=== PATIENT | female | born 1980 | race Caucasian/White ===

== ENCOUNTER 2020-10-02 19:17 | Outpatient (REF) | payer OTHER, SELFPAY ==
[2020-10-02 19:56] LABS: HCT 36.7 % (36.0-46.0); HGB 11.6 g/dL (11.2-15.7); MCH 25.7 pg (27.0-33.0); MCHC 31.6 % (32.0-36.0); MCV 81.4 fL (80-95); MPV 9.4 fL (8.0-11.0); Platelet Count 481 10^3/uL (130-400); RBC 4.51 10^6/uL (3.93-5.22); RDW 14.2 % (11.7-14.6); RDW-SD 41.6 fL; WBC 8.89 10^3/uL (4.4-10.8)
[2020-10-02 20:40] LABS: ALT 23 U/L (14-59); AST 14 U/L (15-37); Albumin 3.7 g/dL (3.4-5.0); Alkaline Phosphatase 103 U/L (46-116); Anion Gap 11.9 mmol/L (3-11); BUN 8 mg/dL (7-18); Bilirubin, Total 0.2 mg/dL (0.2-1.0); CO2 24.1 mmol/L (21.0-32.0); CREATININE 0.6 mg/dL (0.55-1.02); Calcium 9.4 mg/dL (8.5-10.1); Chloride 100 mmol/L (98-107); Glucose 345 mg/dL (74-106); Potassium 4.2 mmol/L (3.5-5.1); Sodium 136 mmol/L (136-145); TSH (W/Ref FT4) 1.12 uIU/mL (0.36-3.74); Total Protein 7.5 g/dL (6.4-8.2)
[2020-10-02 20:55] LABS: Cholesterol 277 mg/dL (<200); HDL Cholesterol 37 mg/dL (40-60); Triglyceride 405 mg/dL (<150)
[2020-10-02 21:08] LABS: LDL CHOLESTEROL 181 mg/dL (<100)
== END 2020-10-02 19:18 | disposition home or self-care (01) ==
LOC: NCHCN 19:17
PROVIDERS: Visit Provider Nurse Practitioner
DX: N92.6 Irregular menstruation, unspecified (principal); Z13.220 Encounter for screening for lipoid disorders; Z13.29 Encounter for screening for other suspected endocrine disorder
CPT/HCPCS: 80053; 80061; 83721; 85027; 84443

== ENCOUNTER 2020-10-03 16:44 | Outpatient (REF) | payer OTHER, SELFPAY ==
[2020-10-03 19:51] LABS: Hemoglobin A1C 10.9 % (<5.7)
== END 2020-10-03 16:45 | disposition home or self-care (01) ==
LOC: NCHCN 16:44
PROVIDERS: Visit Provider Nurse Practitioner
DX: R73.9 Hyperglycemia, unspecified (principal)
CPT/HCPCS: 83036

== ENCOUNTER 2020-10-25 14:08 | Outpatient (REF) | payer OTHER, SELFPAY ==
[2020-10-27 15:35] LABS: Fructosamine 270 mcmol/L (200 - 285)
== END 2020-10-25 14:09 | disposition home or self-care (01) ==
LOC: NCHCN 14:08
PROVIDERS: Visit Provider Nurse Practitioner
DX: E11.9 Type 2 diabetes mellitus without complications (principal)
CPT/HCPCS: 82985

== ENCOUNTER 2020-10-30 02:59 | Outpatient (CLI) | payer OTHER, SELFPAY ==
[2020-10-30 12:16] LABS: Source Nasal/Nares
[2020-10-30 16:02] LABS: COVID-19 PCR Negative (Negative)
== END 2020-10-30 03:00 | disposition home or self-care (01) ==
PROVIDERS: Visit Provider Obstetrics & Gynecology Gynecology
DX: Z20.822 Contact with and (suspected) exposure to COVID-19 (principal); Z01.818 Encounter for other preprocedural examination
CPT/HCPCS: 87635

== ENCOUNTER 2020-10-30 03:22 | Outpatient (CLI) | payer OTHER, SELFPAY ==
[2020-10-30 08:32] LABS: HCT 35.2 % (36.0-46.0); MCH 25.5 pg (27.0-33.0); MCHC 31.3 % (32.0-36.0); MCV 81.5 fL (80-95); MPV 8.7 fL (8.0-11.0); Platelet Count 430 10^3/uL (130-400); RBC 4.32 10^6/uL (3.93-5.22); RDW 13.7 % (11.7-14.6); RDW-SD 40.7 fL; WBC 9.12 10^3/uL (4.4-10.8)
[2020-10-30 09:12] LABS: Hemoglobin A1C 9.2 % (<5.7)
[2020-10-30 09:42] LABS: Anion Gap 11.8 mmol/L (3-11); BUN 10 mg/dL (7-18); CO2 25.2 mmol/L (21.0-32.0); CREATININE 0.8 mg/dL (0.55-1.02); Calcium 8.7 mg/dL (8.5-10.1); Chloride 105 mmol/L (98-107); Glucose 151 mg/dL (74-106); Potassium 4.3 mmol/L (3.5-5.1); Sodium 142 mmol/L (136-145)
== END 2020-10-30 03:23 | disposition home or self-care (01) ==
LOC: LBO 03:22
PROVIDERS: Visit Provider Obstetrics & Gynecology Gynecology
DX: N93.9 Abnormal uterine and vaginal bleeding, unspecified (principal); E11.9 Type 2 diabetes mellitus without complications; Z01.818 Encounter for other preprocedural examination; Z01.812 Encounter for preprocedural laboratory examination
CPT/HCPCS: 36415; 80048; 85027; 86850; 86900; 86901; 83036

== ENCOUNTER 2020-10-30 16:25 | Outpatient (CLI) | payer OTHER, SELFPAY ==
--- NOTE | 2020-10-30 16:30 | RT.EKG_ITS ---
APPROVED REPORT Exam: Resting ECG Reason for Exam: preop Patient Location: O HR:81 bpm ECG Measurements Heart Rate 81 AXIS WY 163 P 49 QRSd 101 QRS 3 QT 384 T 20 QTc 445 Conclusion Sinus rhythm...normal P axis, V-rate 60- 99
== END 2020-10-30 16:26 | disposition home or self-care (01) ==
PROVIDERS: Visit Provider Student in an Organized Health Care Education/Training Program
DX: Z01.810 Encounter for preprocedural cardiovascular examination (principal)
CPT/HCPCS: 93005; 93010

== ENCOUNTER 2020-11-01 10:36 | Observation (INO) | payer OTHER, SELFPAY ==
[2020-11-01] VITALS (11 sets, daily range): BP systolic 80–120; BP diastolic 37–77; PULSE 67–79; RESP 12–19; TEMP 35.8–36.6; O2SAT 95–98; BMI 28.9
[2020-11-01] MEDS: Lactated Ringers 1,000 ML 125 ML IV ×2 (06:58→11:41)
--- NOTE | 2020-11-01 07:17 | W.ANESPRE ---
General Info Date of Service Date Performed: 11/01/20 Height: 5 ft 7 in Weight: 83.688 kg Body Mass Index (BMI): 28.9 Surgical Procedure: Operation Date: 11/01/20 07:40 Proposed Procedures Side Surgeon p Hysterectomy Vaginal Laparoscopic Assist, bladder cysto Marya Olmedo MD Meds Allergies and Home Medications Allergies Allergy/AdvReac Type Severity Reaction Status Date / Time No Known Allergies Allergy Verified 11/01/20 06:29 Home Medication Medication Instructions Recorded metformin 500 mg tablet 1,000 mg PO BID 10/13/20 rosuvastatin [Crestor] 20 mg PO DAILY 10/30/20 Current Visit Medications: Current Medications Generic Name Dose Route Start Last Admin Trade Name Freq PRN Reason Stop Dose Admin Ringer's Solution 1,000 mls @ 125 mls/hr 11/01/20 06:00 IV 11/30/20 23:59 INFUSION STALIN Cefazolin Sodium/Dextrose 2 gm in 50 mls @ 100 mls/hr 11/01/20 06:00 Ancef Duplex IVPB 11/30/20 23:59 PREOP STALIN IV Miscellaneous Supplies 1 each 11/01/20 06:00 Iv Access IV 11/30/20 23:59 DIRECTED STALIN Sodium Chloride 0 ml 11/01/20 06:00 Normal Saline Flush 10 Ml Syr IV 11/30/20 23:59 PRN PRN Sodium Chloride 0 ml 11/01/20 06:00 Normal Saline 10 Ml Vial IJ 11/30/20 23:59 DIRECTED PRN Sterile Water 0 ml 11/01/20 06:00 Water,Injection,Sterile 10 Ml Vial IJ 11/30/20 23:59 DIRECTED PRN PFSH Active Problems Active Problems: Problem Status Onset Code Diabetes E11.9 Migraine G43.909 Abnormal uterine bleeding (AUB) N93.9 Medical History Medical History Diabetes 10/03/20. HgbA1c 10.4. Rx with Metformin 500mg BID. Surgical History Surgical History Hx of tubal ligation Tobacco Smoking/Tobacco Use Status: Never Alcohol Alcohol Intake: current Alcohol intake frequency: a few times a month Substance Use Substance use: Never Substance use type: does not use Prental History History 3 Para 3 Hx # Term Pregnancies 3 Multiple births Hx # Pregnancies Ectopic pregnancies AB induced Hx Number of Living Children 3 AB spontaneous Vital Signs and Lab Results Vital Signs Most Recent Vital Signs in EMR: Most Recent Vital Signs Temp Pulse Resp BP Pulse Ox 36.6 C 79 18 120/77 98 11/01/20 06:30 11/01/20 06:30 11/01/20 06:30 11/01/20 06:30 11/01/20 06:30 Point of Care Results Point of Care Results: POC- Test(urine) Positive 11/01/20 06:40 Lab Results Blood Type / Crossmatch: Patient ABO/Rh A Positive 10/30/20 08:15 10/30/20 Antibody Screen NEGATIVE 10/30/20 08:15 10/30/20 Complete Blood Count: White Blood Count 9.12 10^3/uL (4.4-10.8) 10/30/20 08:15 10/30/20 Red Blood Count 4.32 10^6/uL (3.93-5.22) 10/30/20 08:15 10/30/20 Hemoglobin 11.0 g/dL (11.2-15.7) L 10/30/20 08:15 10/30/20 Hematocrit 35.2 % (36.0-46.0) L 10/30/20 08:15 10/30/20 Platelet Count 430 10^3/uL (130-400) H 10/30/20 08:15 10/30/20 Complete Metabolic Panel: Sodium Level 142 mmol/L (136-145) 10/30/20 08:15 10/30/20 Potassium Level 4.3 mmol/L (3.5-5.1) 10/30/20 08:15 10/30/20 Chloride Level 105 mmol/L (98-107) 10/30/20 08:15 10/30/20 Carbon Dioxide Level 25.2 mmol/L (21.0-32.0) 10/30/20 08:15 10/30/20 Blood Urea Nitrogen 10 mg/dL (7-18) 10/30/20 08:15 10/30/20 Creatinine 0.8 mg/dL (0.55-1.02) 10/30/20 08:15 10/30/20 Estimated GFR/1.73 m2 >= 60.00 (mL/min/1.73m2) 10/30/20 08:15 10/30/20 Calcium Level 8.7 mg/dL (8.5-10.1) 10/30/20 08:15 10/30/20 Albumin 3.7 g/dL (3.4-5.0) 10/02/20 15:45 10/02/20 Glucose Level 151 mg/dL (74-106) H 10/30/20 08:15 10/30/20 Hemoglobin A1c 9.2 % (<5.7) H 10/30/20 08:15 10/30/20 Liver Function Panel: Alanine Aminotransferase (ALT/SGPT) 23 U/L (14-59) 10/02/20 15:45 10/02/20 Aspartate Amino Transf (AST/SGOT) 14 U/L (15-37) L 10/02/20 15:45 10/02/20 Coagulation Panel: No Data to Display Cardiac Panel: No Data to Display Arterial Blood Gas: No Data to Display Venous Blood Gas: No Data to Display Pancreas Panel: No Data to Display Thyroid Panel: Thyroid Stimulating Hormone (TSH) 1.12 uIU/mL (0.36-3.74) 10/02/20 15:45 10/02/20 Infectious Disease: Coronavirus (COVID-19)(PCR) Negative (Negative) 10/30/20 08:27 10/30/20 Coronavirus 2019 Source Nasal/Nares 10/30/20 08:27 10/30/20 Blood Cultures: No Data to Display Toxicology Panel: No Data to Display Panel: No Data to Display Anesthesia Assessment and Plan Anesthesia History Personal History: No History of Anesthesia Complications Family History: No Family History of Anesthesia Complications Exercise Tolerance Exercise Tolerance: Metabolic Equivalents>4 Pertinent Negatives Pertinent Negatives: No Symptoms of GERD, No Major Cardiovascular Symptoms or Complaints and No Major Pulmonary Symptoms or Complaints Cardiac & Pulmonary Exam Cardiac Exam: Normal S1/S2 Heart Sounds Pulmonary Exam: Clear Bilateral Breath Sounds Airway Exam Known Difficult Airway: No Mallampati Class: 2 Mouth Opening: Normal (> 3cm) Thyromental Distance: Greater than 3 cm Neck Range of Motion: Full ROM Neck Circumference: Normal Teeth Condition: Normal Dentition ASA Classification ASA Score: ASA 2 Emergency Case?: No NPO Status NPO Status: NPO Clears >2 hours, Solids >8 hours Status Status: Negative HCG Anesthesia Plan Resuscitation Status: Full Code Anesthesia Technique: General Anesthesia Airway Planned: Endotracheal Tube Pain Management: Intrathecal Analgesia Monitors Used: Standard Monitors
[2020-11-01] MEDS: ceFAZolin 2 GM/50 ML BAG IVPB (07:58)
--- NOTE | 2020-11-01 09:05 | UTER_PTH ---
PATIENT: Vivian Damon LOC: U#:[id number] AGE/SX: 39/F ROOM: RE11/01/[address]: Marya Olmedo : 1980 BED: A DIS: 11/02/2020 SPEC #: [id number] RECD: 11/01/20 12:38 STATUS: JACE REQ #: [id number] LAWRENCE: 11/01/20 09:[address]: Marya Olmedo DEPT: Surgical Specimen RECD BY: Gogo Zarate ENTERED: 11/01/20 12:40 SP TYPE: UTER OTHR DR: Unknown,Unknown Tissues: 1 - UTERUS W OR W/O OVARIES(NOT TUMOR/PROLAPSE) Procedures: GROSS AND MICRO LEVEL 5 Comments: [id number]
[2020-11-01] MEDS: Cellulose,Oxidized 4X8 1 PACKET MC (10:26)
[2020-11-01] MEDS: Bupivacaine 0.25% Pres-Free 30 ML VIAL (10:27)
--- NOTE | 2020-11-01 11:25 | W.ANESPOSTOP ---
Postoperative Evaluation Date, Time and Location Date Performed: 11/01/20 Time Performed: 11:25 Patient Location: PACU Vital Signs Most Recent Imported Vital Signs: Most Recent Vital Signs Temp Pulse Resp BP Pulse Ox 36.3 C L 77 19 117/63 95 11/01/20 11:20 11/01/20 11:20 11/01/20 11:20 11/01/20 11:20 11/01/20 11:20 Pain Score Most Recent Pain Score: Most Recent Pain Score Pain Level 0 11/01/20 11:20 Assessment Mental Status: Awake (Alert & Oriented to Patient Baseline) Airway and Respiratory Function: Patent airway with normal (patient baseline) respiratory exam Cardiovascular Function: Hemodynamically Stable Hydration Status: Adequately Hydrated Nausea & Vomiting: No Nausea or Vomiting Pain: Pt. Denies Any Pain Peripheral Nerve Block: Patient did not receive a nerve block
[2020-11-01] MEDS: Naloxone 0.4 MG/ML VIAL IVP (13:05)
[2020-11-01] MEDS: Ketorolac 30 MG/ML VIAL IVP ×2 (15:58→21:27)
[2020-11-01] MEDS: Insulin NPH-Human 300 UNITS/3 ML PEN 4 UNIT SC (17:58)
[2020-11-01] MEDS: Rosuvastatin 10 MG TAB 20 MG PO (19:49)
[2020-11-01] MEDS: Docusate Sodium 100 MG CAP PO (19:50)
[2020-11-01] MEDS: metFORMIN 500 MG TAB 1000 MG PO (19:50)
[2020-11-01] MEDS: Normal Saline Flush 10 ML SYR IV (21:28)
[2020-11-02] MEDS: Lactated Ringers 1,000 ML 125 ML IV (02:13)
[2020-11-02] MEDS: Ketorolac 30 MG/ML VIAL IVP ×2 (04:05→09:50)
[2020-11-02 07:00] LABS: HCT 29.4 % (36.0-46.0); HGB 9.1 g/dL (11.2-15.7); MCH 25.6 pg (27.0-33.0); MCV 82.8 fL (80-95); MPV 9.2 fL (8.0-11.0); Platelet Count 332 10^3/uL (130-400); RBC 3.55 10^6/uL (3.93-5.22); RDW 13.7 % (11.7-14.6); RDW-SD 41.3 fL; WBC 12.84 10^3/uL (4.4-10.8)
[2020-11-02 07:11] VITALS: BP 126/81; PULSE 64; RESP 17; TEMP 36.2; O2SAT 98
[2020-11-02 07:20] LABS: ALT 19 U/L (14-59); AST 8 U/L (15-37); Albumin 2.6 g/dL (3.4-5.0); Alkaline Phosphatase 55 U/L (46-116); Anion Gap 6.1 mmol/L (3-11); BUN 13 mg/dL (7-18); Bilirubin, Total 0.3 mg/dL (0.2-1.0); CO2 24.9 mmol/L (21.0-32.0); CREATININE 0.8 mg/dL (0.55-1.02); Calcium 8.7 mg/dL (8.5-10.1); Chloride 106 mmol/L (98-107); Glucose 148 mg/dL (74-106); Potassium 3.8 mmol/L (3.5-5.1); Sodium 137 mmol/L (136-145); Total Protein 5.7 g/dL (6.4-8.2)
[2020-11-02] MEDS: Insulin NPH-Human 300 UNITS/3 ML PEN 4 UNIT SC (07:58)
[2020-11-02] MEDS: metFORMIN 500 MG TAB 1000 MG PO (07:58)
[2020-11-02] MEDS: Docusate Sodium 100 MG CAP PO (07:58)
--- NOTE | 2020-11-02 09:21 | W.PM.DS.N ---
Date of service: 11/02/20 Time of Service: 09:24 DS: Diagnosis Discharge Diagnosis (1) Diabetes: Status: Chronic Asessment and Plan: New onset fcp-dbwbwkx-zlfutztrz diabetes. Initial hemoglobin A1c 10.9. Repeat after 1mo of Metformin and lifestyle changes: 9.2. Preop Fructosamine 270 (200-285). Pt will be discharged to home with Novolin-N 4units BID (2) Abnormal uterine bleeding (AUB): Status: Acute (3) History of laparoscopic-assisted vaginal hysterectomy: Status: Acute (4) History of bilateral salpingectomy: Status: Acute Discharge Plan Disposition Patient Disposition: HOME Condition: Fair Discharge Details Reason For Visit: LAPAROSCOPIC ASSISTED VAGINAL HYSTERECTOMY Admit Date/Time: 11/01/20 10:36 Admit Provider: Marya Olmedo Attending Provider: Marya Olmedo Primary Care Provider: Unknown,Unknown Hospital Course Hospital Course: Patient was admitted the morning of surgery underwent the above-stated procedure. Her postop course was uncomplicated she was discharged home on postop day #1 tolerating a regular diet and voiding spontaneously. Her pain was controlled with nonsteroidal anti-inflammatories. She declined narcotics for post op pain management. She received 4 units of NPH at bedtime day of surgery and her blood glucose in the morning was 149 mg/dL. The plan is to have her continue 4 units of NPH dosing twice daily and check in with me frequently regarding glycemic control. She will be followed up in the office in approximately 1 week for inspection of incisions. Pathology results pending at the time of discharge Home Meds and New Rx's Prescriptions: New Humulin N NPH Insulin KwikPen 100 unit/mL (3 mL) Insulin Pen 4 unit subcut BID@0800,1700 Qty: 3 RF: 0 No Action metformin 500 mg tablet 1,000 mg PO BID RF: 0 rosuvastatin [Crestor] 20 mg Tablet 20 mg PO DAILY RF: 0 Discharge Instructions Instructions: Hysterectomy (DC), Laparoscopic Hysterectomy (DC) Additional Instructions: Call or text Dr. Olmedo at on 11/04/2020 with your morning sugar result. Continuing to test your sugars as you did before your surgery. Use the Nov Do not lift anything heavier than 10 pounds. No driving for 2 weeks. Use ibuprofen for pain control. Plan 600 mg of the uajw-xlp-uaghlet ibuprofen/Advil every 6 hours as needed. You may have black and blue around your incisions. You have skin glue in place that can be removed at the time of your next office visit. Stand Alone Forms: [facility] Post Gynecology Surgery, Nursing Discharge Form Referrals: Marya Olmedo MD [ [facility] STAFF PHYSICIAN] - 11/13/20 8:00 am Activity:: Activity as Tolerated Equipment/Supplies:: No Equipment Needed Diet:: Carb Counting Discharge Orders Discharge Orders: Discharge Order (Routine); Ordered 11/02/20 Ordered By: Marya Olmedo DS: Summary Time Spent with Patient providing and/or coordinating discharge services: Less than 30 minutes Status at Discharge Functional status at discharge: independent ambulation Overall status at discharge: patient is progressing back to baseline Mental Status: mental status grossly normal Speech and Movement: speech and movement normal Mood: congruent mood Affect: normal affect Exam Const General: no acute distress Nutritional Appearance: overweight Orientation: alert, awake and oriented x3 Neck Neck: normal visual inspection Resp Effort & Inspection: normal respiratory effort Auscultation: clear to auscultation bilaterally Cardio Rate: regular rate Rhythm: regular rhythm GI Inspection: incision (Clean dry intact. Skin glue in place. No ecchymosis) Palpation: soft, no hepatosplenomegaly and tender (Diffuse throughout the abdomen) General: deferred Skin General skin exam: no rashes or lesions noted Extrem General: normal to inspection and full ROM Psych Appearance: grossly normal Mental Status: mental status grossly normal Speech and Movement: speech and movement normal Mood: congruent mood Affect: normal affect DS: Data Vitals/I&O Vitals and I&O: Vital Signs Temperature 97.2 F L 11/02/20 07:11 Temperature Source Temporal Artery Scan 11/02/20 07:11 Pulse 64 11/02/20 07:11 Pulse Rhythm Regular 11/02/20 06:02 Respiratory Rate 17 11/02/20 07:11 Respiratory Effort Non-Labored 11/02/20 06:02 Respiratory Depth Normal 11/02/20 06:02 Respiratory Pattern Normal 11/02/20 06:02 Blood Pressure 126/81 11/02/20 07:11 Pulse Oximetry 98 11/02/20 07:11 Respiratory End-tidal CO2 11/01/20 11:05 Oxygen Delivery Method Room Air 11/02/20 07:11 Oxygen Flow Rate 0 11/02/20 07:11 Pain Level 3 11/02/20 07:56 Intake & Output 11/01/20 11/01/20 11/02/20 11:59 23:59 11:59 Intake Total 845.833 / 1045.833 200 / 1045.833 550 / 550 Output Total 1395 / 1395 1650 / 1650 Balance 845.833 / -349.167 -1195 / -349.167 -1100 / -1100 Weight 184 lb 8.007 oz 183 lb 10.321 oz Intake: IV 845.833 / 845.833 Oral 200 / 200 550 / 550 Output: Urine 1395 / 1395 1650 / 1650 Other: Urine Color Green Green Indigo Urine Appearance Clear Clear Urine Odor None Comment blue colored output from vale. Emesis Description None Voiding Methods Indwelling Catheter Data Completed and Pending Labs on day of discharge: Labs from last 24 hours 11/02/20 11/02/20 06:05 06:05 WBC 12.84 H RBC 3.55 L Hgb 9.1 L Hct 29.4 L MCV 82.8 MCH 25.6 L MCHC 31.0 L RDW 13.7 Plt Count 332 MPV 9.2 Sodium 137 Potassium 3.8 Chloride 106 Carbon Dioxide 24.9 Anion Gap 6.1 BUN 13 Creatinine 0.8 Estimated GFR/1.73 m2 >= 60.00 Glucose 148 H Calcium 8.7 Total Bilirubin 0.3 AST 8 L ALT 19 Alkaline Phosphatase 55 Total Protein 5.7 L Albumin 2.6 L [facility] Medical History (Updated 11/02/20 @ 09:34 by Marya Olmedo MD) Diabetes 10/03/20. New onset yjg-rbmcxkr-jyefrjwhd diabetes. Initial hemoglobin A1c 10.9. Repeat after 1mo of Metformin and lifestyle changes: 9.2. Preop Fructosamine 270 (200-285). Pt will be discharged to home with Novolin-N 4units BID Surgical History (Updated 11/02/20 @ 09:25 by Marya Olmedo MD) History of bilateral salpingectomy History of laparoscopic-assisted vaginal hysterectomy Hx of tubal ligation Family History Other Cancer Diabetes Hypertension Social History (Updated 07/19/20 @ 20:11 by Marya Olmedo MD) Smoking/Tobacco Use Status: Never Smoking risk assessment performed?: Yes Alcohol Intake: current Alcohol Intake frequency: a few times a month Drug use: Never Substance use type: does not use Household members: spouse, children and other Details: Nate x 4.5yrs. Do you feel safe at home: Yes Do you feel safe in your relationship?: Yes Female Reproductive History Menstrual Duration of menses: 3-5 days (Heavy) control method: permanent sterilization History History 3 Para 3 Hx # Term Pregnancies 3 Multiple births Hx # Pregnancies Ectopic pregnancies AB induced Hx Number of Living Children 3 AB spontaneous
[2020-11-02] MEDS: Normal Saline Flush 10 ML SYR IV (09:50)
--- NOTE | 2020-11-02 09:55 | ROE_ITS ---
Date of service: 11/02/20 Time of Service: 09:56 Operative Note Operative Note DATE OF PROCEDURE: 11/01/20 PRE-OP DIAGNOSIS: Abnormal uterine bleeding POST-OP DIAGNOSIS: same PROCEDURE: Laparoscopic-assisted vaginal hysterectomy bilateral salpingectomy and bladder cystoscopy SURGEON: Marya Olmedo TELEVISION AND RADIO REPAIRER: Kait Lopez ANESTHESIA TYPE: General LMA/ETT and Spinal Refer to Anesthesia Record ESTIMATED BLOOD LOSS: 100 PATHOLOGY: other (Uterus cervix and bilateral fallopian tubes) COMPLICATIONS: None Patient was transported to: PACU Patient's condition: stable Indications: 39-year-old female with a history of abnormal uterine bleeding previously treated with a endometrial ablation that did not impact her heavy regular menses. She requested definitive therapy in the form of hysterectomy. Findings: Uterus somewhat bulky. Previous bilateral fallopian tube ligation noted. Otherwise normal fallopian tubes normal adnexa. 1 focus of peritoneal adhesion from the left fallopian tube to the right pelvic sidewall. It was easily treated with a single cauterization and transection by LigaSure device. Procedure Description: Patient was taken to the operating room where she was placed in the sitting position and spinal anesthesia was administered. She received 2 g of Ancef prior to skin incision. She was then placed in the dorsal supine position and general endotracheal anesthesia was administered without difficulty. She was then placed in the dorsal lithotomy position in yellowfin stirrups with SCDs in place. After being prepped and draped in the usual sterile fashion a surgical timeout was performed. Madrid catheter was placed to gravity drainage. A bivalve speculum was placed in the vagina the anterior lip of the cervix was grasped with a single-tooth tenaculum. A Huma uterine manipulator was successfully inserted into the uterine cavity, the catheter bulb inflated with 3 cc of normal saline and the device left in place. Attention was then turned to the patient's abdomen. The umbilical fold was infiltrated with quarter percent Marcaine without epinephrine. A scalpel was then used to make a 12mm vertical skin incision in the umbilical fold. Two penetrating towel clips were used to tent up the skin and through the periumbilical incision and a Veres needle was introduced into the abdomen with carbon dioxide as the distention medium. Intra-abdominal placement was confirmed by a drop in the intra-abdominal pressure. Once a pneumoperitoneum was established a 12 mm Visiport was placed under direct visualization and intra-abdominal placement confirmed by use of the laparoscope. Patient was then placed in Trendelenburg position. At two sites approximately 6 cm diagonally from the umbilical incision the skin was infiltrated with 1cc of 0.25% Marcaine without epinephrine, incised with a scalpel and two 5 mm lower ports were placed under direct visualization. After careful inspection of the pelvis a LigaSure electrocautery device was used to clamp, cauterize and transect the left fallopian tube remnant from its attachment to the surface of the left ovary. It was then delivered through the 12mm umbilical port. Left ovarian ligament was then similarly clamped cauterized and transected from its attachment to the body of the uterus. The left round ligament and broad ligament were then clamped, cauterized and transected to the level of the lower uterine segment. The vesico-uterine peritoneum was incised and the the from the lower uterine segment and mobilized off of the body of the cervix. The pedicles of the suspensory, round and broad ligaments were inspected and noted to be hemostatic. On the contralateral side the right fallopian tube remnant was clamped,cauterized and transected from the body of the R ovary. It was then delivered through the 12mm umbilical port. The ovarian ligament, round, and right broad ligaments were sequentially clamped, cauterized and transected using the Ligasure device to the level of the insertion of the uterine artery. The remaining the vesicouterine peritoneum was incised across the lower uterine segment and the bladder flap created using the Ligasure device and gentle counter traction. All pedicles were inspected and noted to be hemostatic. Decision was made to proceed with the vaginal portion of the case. Laparoscopic instruments were removed from the ports , the pneumoperitoneum was reduced, and the was abdomen covered with sterile drape. A weighted vaginal speculum was placed in the vagina and the anterior and posterior lips of the cervix were grasped with Brittny clamps. A solution of 1% lidocaine with dilute epinephrine was used to infiltrate the body of the cervix in a circumferential fashion followed by a circumferential incision of the cervical epithelium with Bovie electrocautery. The vesicouterine fascia was identified and the anterior cul-de-sac was entered using blunt and sharp disection. Through this incision a curved right angled retractor was inserted and used to retract the bladder away from the operative field. The posterior cul-de-sac was entered sharply and through the this incision a long billed weighted speculum was placed. The left and right uterosacral ligament complexes were identified clamped, transected and suture-ligated and the suture held long. The remaining right and left broad ligament attatchments were sequentially clamped, cauterized, and transected and the specimen was passed off of the operative field. All of the pedicle sites were inspected and were hemostatic. The vaginal cuff was reapproximated in a vertical fashion with an interrupted suture of 0 Vicryl. Instruments removed from the vagina and attention was again turned to the abdomen where a pneumoperitoneum was reestablished and the pelvis inspected using the laparoscope. The vaginal cuff was intact and was hemostatic as were the round ligament and broad ligament pedicles both at 15mmHg and when the pressure was temporarily reduced to 5mmHg. The instruments were removed from the port sites under direct visualization, the pneumoperitoneum reduced, and the ports removed. The fascia of the periumbilical skin incision was closed with interrupted suture of 0 Vicryl. The skin of all port site incisions were reapproximated with a subcuticular closure of 4-0 Monocryl and and covered with skin glue. A cystoscopy was performed with both ureteral jets patent with a brisk reflux of urine from each. The bladder was inspected and no evidence of sutures were present. Madrid catheter was reinserted to gravity drainage and the patient was placed in the dorsal supine position, awakened, extubated, and transported recovery area in stable condition. All sponge lap needle counts correct x2.
== END 2020-11-02 10:31 | disposition home or self-care (01) ==
LOC: MS 12:14
PROVIDERS: Admitting Provider Obstetrics & Gynecology Gynecology; Visit Provider Obstetrics & Gynecology Gynecology
PROC: 0UT9FZZ Resection of Uterus, Via Natural or Artificial Opening With Percutaneous Endoscopic Assistance (ICD-10-PCS; CPT 58552; principal; 2020-11-01 07:30)
DX: N93.9 Abnormal uterine and vaginal bleeding, unspecified (principal); N80.0 Endometriosis of uterus; E11.9 Type 2 diabetes mellitus without complications; Z79.4 Long term (current) use of insulin
CPT/HCPCS: 58552; 52000; 36415; 80053; 85027; 88307; G0378; J0690; J1100; J1885; J2250; J2310; J2405; J2704; J3010

== ENCOUNTER 2021-12-26 10:17 | Outpatient (REF) | payer OTHER, SELFPAY ==
[2021-12-26 16:04] LABS: Abs Immature Grans 0.08 10^3/uL (0.0-0.06); Absolute Basophil Count 0.12 10^3/uL (0.0-0.2); Absolute Eosinophil Count 0.14 10^3/uL (0.0-0.7); Absolute Lymphocyte Count 2.37 10^3/uL (1.2-3.4); Absolute Monocyte Count 0.61 10^3/uL (0.1-0.8); Absolute Neutrophil Count 7.13 10^3/uL (1.2-6.7); Basophils % 1.1; Eosinophils % 1.3; HCT 40.2 % (36.0-46.0); HGB 13.6 g/dL (11.2-15.7); Immature Grans % 0.8; Lymphocytes % 22.7; MCHC 33.8 % (32.0-36.0); MCV 89 fL (80-95); MPV 9.1 fL (8.0-11.0); Monocytes % 5.8; Neutrophils % 68.3; Platelet Count 437 10^3/uL (130-400); RBC 4.53 10^6/uL (3.93-5.22); RDW 12.1 % (11.7-14.6); WBC 10.45 10^3/uL (4.4-10.8)
[2021-12-26 16:07] LABS: ALT 28 U/L (14-59); AST 8 U/L (15-37); Alkaline Phosphatase 74 U/L (46-116); Anion Gap 8.4 mmol/L (3-11); BUN 12 mg/dL (7-18); Bilirubin, Total 0.3 mg/dL (0.2-1.0); CO2 29.6 mmol/L (21.0-32.0); CREATININE 0.8 mg/dL (0.55-1.02); Calcium 9.5 mg/dL (8.5-10.1); Calculated LDL 178 mg/dL (<100); Chloride 99 mmol/L (98-107); Cholesterol 261 mg/dL (<200); Glucose 239 mg/dL (74-106); HDL Cholesterol 47 mg/dL (40-60); Potassium 4.8 mmol/L (3.5-5.1); Sodium 137 mmol/L (136-145); Total Protein 7.8 g/dL (6.4-8.2); Triglyceride 183 mg/dL (<150)
[2021-12-26 17:17] LABS: Hemoglobin A1C 7.9 % (<5.7)
== END 2021-12-26 10:18 | disposition home or self-care (01) ==
LOC: NCHCN 10:17
PROVIDERS: Visit Provider Nurse Practitioner Family
DX: Z00.00 Encounter for general adult medical examination without abnormal findings (principal); E78.5 Hyperlipidemia, unspecified; E11.9 Type 2 diabetes mellitus without complications
CPT/HCPCS: 80053; 80061; 83036; 85025

== ENCOUNTER 2022-04-03 16:47 | Outpatient (REF) | payer OTHER, SELFPAY ==
[2022-04-03 22:10] LABS: COMMENT (LAB VIEW ONLY) 15.72 mg/dL; Microalb ug/mg Crea 74.4 ug/mg Cr
== END 2022-04-03 16:48 | disposition home or self-care (01) ==
LOC: NCHCN 16:47
PROVIDERS: Visit Provider Nurse Practitioner Family
DX: E11.9 Type 2 diabetes mellitus without complications (principal)
CPT/HCPCS: 82043; 82570

== ENCOUNTER 2023-01-13 15:16 | Outpatient (REF) | payer OTHER, SELFPAY ==
[2023-01-13 16:58] LABS: HCT 38.1 % (36.0-46.0); HGB 13.1 g/dL (11.2-15.7); MCH 30.6 pg (27.0-33.0); MCHC 34.4 % (32.0-36.0); MCV 89 fL (80-95); MPV 9.2 fL (8.0-11.0); Platelet Count 395 10^3/uL (130-400); RBC 4.28 10^6/uL (3.93-5.22); RDW 11.9 % (11.7-14.6); RDW-SD 38.8 fL; WBC 8.01 10^3/uL (4.4-10.8)
[2023-01-13 18:17] LABS: ALT 23 U/L (14-59); AST 13 U/L (15-37); Albumin 3.9 g/dL (3.4-5.0); Alkaline Phosphatase 71 U/L (46-116); Anion Gap 8.4 mmol/L (3-11); BUN 14 mg/dL (7-18); Bilirubin, Total 0.4 mg/dL (0.2-1.0); CO2 25.6 mmol/L (21.0-32.0); CREATININE 0.7 mg/dL (0.55-1.02); Calcium 9.1 mg/dL (8.5-10.1); Calculated LDL 132 mg/dL (<100); Chloride 103 mmol/L (98-107); Cholesterol 203 mg/dL (<200); Glucose 104 mg/dL (74-106); HDL Cholesterol 44 mg/dL (40-60); Potassium 4.4 mmol/L (3.5-5.1); Sodium 137 mmol/L (136-145); Total Protein 7.2 g/dL (6.4-8.2); Triglyceride 137 mg/dL (<150)
== END 2023-01-13 15:17 | disposition home or self-care (01) ==
LOC: NCHCN 15:16
PROVIDERS: Visit Provider Nurse Practitioner Family
DX: E11.9 Type 2 diabetes mellitus without complications (principal); E78.5 Hyperlipidemia, unspecified; R07.89 Other chest pain; Z86.2 Personal history of diseases of the blood and blood-forming organs and certain disorders involving the immune mechanism
CPT/HCPCS: 80053; 80061; 85027; 84443

== ENCOUNTER → 2023-01-22 02:17 | Outpatient (CLI) | payer OTHER, SELFPAY ==
--- NOTE | 2023-01-22 | DI.MAMMO_ITS ---
Exam(s) MAMMO SCREENING EXAM: MAMMO SCREENING CLINICAL HISTORY: SCREENING, Z12.39. TECHNIQUE: Bilateral full field digital CC and MLO mammographic images were obtained with 3D tomosyn thesis and utilizing computer aided detection (CAD). COMPARISON: None. This is a baseline screening mammogram on this 42-year-old patient. FINDINGS: There are no spiculated masses nor malignant appearing microcalcification groups. There is no significant architectural distortion nor skin thickening-retraction. IMPRESSION: No radiographic evidence of malignancy. BI-RADS Category 1 - Negative Breast Density - Category B - Scattered areas of fibroglandular density Breast density Category C or D implies that the patient has dense breast tissue. Dense breast tissue can make it harder to find cancer on a mammogram. Dense breast tissue is also associated with an incr eased risk of breast cancer. This information about the result of the mammogram report was provided to the patient to raise their awareness. Use this report when you speak with the patient about their risks for breast cancer, which includes their family history. At that time, you may recommend additional screening tests (Ultrasoun d or MRI) as these tests may add significant information. A negative radiographic report should not delay biopsy if a dominant or clinically suspicious mass is present. Up to ten percent of cancers are not identified on mammography. A negative report may reinforce clinical impression. Adenosis and dense breasts may obscure an underlying neoplasm. False positive reports average 6 to 10%. Patient will receive a letter notifying them of these results.
== END ==
PROVIDERS: Visit Provider Nurse Practitioner Family
DX: Z12.31 Encounter for screening mammogram for malignant neoplasm of breast (principal)
CPT/HCPCS: 77063; 77067

== ENCOUNTER → 2023-10-03 01:20 | Outpatient (CLI) | payer OTHER, SELFPAY ==
--- NOTE | 2023-10-03 08:48 | DI.RAD_ITS ---
Exam(s) XR LUMBAR SPINE COMPLETE EXAM: XR LUMBAR SPINE COMPLETE CLINICAL HISTORY: CHRONIC LOW BACK PAIN,M54.50. TECHNIQUE: 2D digital imaging was performed. COMPARISON: No exams were available for comparison FINDINGS: Five views. No evidence of fracture or listhesis. No pars defects. There is advanced narrowing of the L5-S1 disc space. Other disc spaces exhibit normal height. No si gnificant facet arthropathy with the exception of mild degenerative change at the L5-S1 facet joints. Bone density normal. No osseous lesions. There is no scoliosis. Sacroiliac joints unremarkable IMPRESSION: Advanced disc space narrowing at L5-S1 level. DATA REPOSITORY: RADIATION DOSE DELIVERED:
== END ==
PROVIDERS: PCP Nurse Practitioner Family; Visit Provider Nurse Practitioner Family
DX: M51.37 Other intervertebral disc degeneration, lumbosacral region (principal)
CPT/HCPCS: 72110

== ENCOUNTER 2024-08-30 15:57 | Outpatient (REF) | payer OTHER, SELFPAY ==
[2024-08-30 22:30] LABS: Hemoglobin A1C 8.2 % (<5.7)
[2024-08-30 22:54] LABS: ALT 28 U/L (14-59); AST 17 U/L (15-37); Alkaline Phosphatase 83 U/L (46-116); Anion Gap 8.3 mmol/L (3-11); BUN 9 mg/dL (7-18); Bilirubin, Total 0.3 mg/dL (0.2-1.0); CO2 27.7 mmol/L (21.0-32.0); CREATININE 0.8 mg/dL (0.55-1.02); Calcium 9.4 mg/dL (8.5-10.1); Chloride 103 mmol/L (98-107); Estimated GFR 92.54 (mL/min/1.73m2); Glucose 183 mg/dL (74-106); Potassium 4.2 mmol/L (3.5-5.1); Sodium 139 mmol/L (136-145); Total Protein 7.3 g/dL (6.4-8.2)
[2024-08-31 21:18] LABS: Calculated LDL 164 mg/dL (<100); Cholesterol 249 mg/dL (<200); HDL Cholesterol 49 mg/dL (>or=50); Triglyceride 183 mg/dL (<150)
== END 2024-08-30 15:58 | disposition home or self-care (01) ==
LOC: NCHCN 15:57
PROVIDERS: PCP Nurse Practitioner Family; Visit Provider Nurse Practitioner Family
DX: Z00.00 Encounter for general adult medical examination without abnormal findings (principal)
CPT/HCPCS: 80053; 80061; 83036

== ENCOUNTER 2024-10-21 01:59 | Outpatient (CLI) | payer OTHER, SELFPAY ==
--- NOTE | 2024-10-21 | DI.MAMMO_ITS ---
Exam(s) MAMMO SCREENING EXAM: MAMMO SCREENING CLINICAL HISTORY: Screening, Z12.31. TECHNIQUE: Bilateral full field digital CC and MLO mammographic images were obtained with 3D tomosynthesis and utilizing computer aided detection (CAD). COMPARISON: Prior baseline mammogram of January 2023 was reviewed. FINDINGS: There has been no significant change in the appearance and distribution of the fibroglandular tissue. There are no CAD designations. There are no new spiculated masses nor malignant appearing microcalcification groups. There is no significant architectural distortion nor skin thickening-retraction. IMPRESSION: No radiographic evidence of malignancy. BI-RADS Category 1 - Negative Breast Density - Category B - There are scattered areas of fibroglandular density. Breast density Category C or D implies that the patient has dense breast tissue. Dense breast tissue can make it harder to find cancer on a mammogram. Dense breast tissue is also associated with an increased risk of breast cancer. This information about the result of the mammogram report was provided to the patient to raise their awareness. Use this report when you speak with the patient about their risks for breast cancer, which includes their family history. At that time, you may recommend additional screening tests (Ultrasound or MRI) as these tests may add significant information. A negative radiographic report should not delay biopsy if a dominant or clinically suspicious mass is present. Up to ten percent of cancers are not identified on mammography. A negative report may reinforce clinical impression. Adenosis and dense breasts may obscure an underlying neoplasm. False positive reports average 6 to 10%. Patient will receive a letter notifying them of these results.
== END 2024-10-21 02:19 ==
LOC: DI 01:59
PROVIDERS: PCP Nurse Practitioner Family; Visit Provider Nurse Practitioner Family
DX: Z12.31 Encounter for screening mammogram for malignant neoplasm of breast (principal); R92.323 Mammographic fibroglandular density, bilateral breasts
CPT/HCPCS: 77063; 77067

== ENCOUNTER 2024-11-30 16:42 | Outpatient (REF) | payer OTHER, SELFPAY ==
[2024-12-02 17:01] LABS: COMMENT (LAB VIEW ONLY) 66.12 mg/dL; Microalb ug/mg Crea 24.2 ug/mg Cr
== END 2024-11-30 16:43 | disposition home or self-care (01) ==
LOC: NCHCN 16:42
PROVIDERS: PCP Nurse Practitioner Family; Visit Provider Nurse Practitioner Family
DX: E11.9 Type 2 diabetes mellitus without complications (principal)
CPT/HCPCS: 82043; 82570